=== PATIENT | female | born 1995 | race Two or more races ===

== ENCOUNTER 2018-11-17 02:20 | Emergency (ER) | payer SELFPAY ==
[~2018-11-17] VITALS: Ht 160 cm; Wt 59.0 kg
[2018-11-17 03:04] VITALS: BP 138/97
== END 2018-11-17 06:01 | disposition home or self-care (01) ==
LOC: ER 02:24
DX: N76.0 Acute vaginitis (principal)

== ENCOUNTER 2019-03-29 22:20 | Emergency (ER) | payer MEDICAID, OTHER ==
[~2019-03-29] VITALS: Ht 160 cm; Wt 61.2 kg
[2019-03-29 22:49] VITALS: BP 125/83
== END 2019-03-30 00:07 | disposition left against medical advice (07) ==
LOC: ER 22:22
DX: R21 Rash and other nonspecific skin eruption (principal); Z53.21 Procedure and treatment not carried out due to patient leaving prior to being seen by health care provider

== ENCOUNTER 2020-02-23 01:12 | Emergency (ER) | payer MEDICAID ==
[~2020-02-23] VITALS: Ht 160 cm; Wt 59.0 kg
[2020-02-23] MEDS ORDERED: SODIUM CHLORIDE 0.9% 1,000 ML IV ONE (01:45)
[2020-02-23] MEDS ORDERED: PROMETHAZINE HCL 25 MG/ML 1ML IV ONE (01:45)
[2020-02-23 01:50] VITALS: BP 133/83
[2020-02-23 02:12] LABS: Basophils # (auto) 0 10 ^3/uL (0-0.2); Basophils % (auto) 0.4 % (0.0-2.0); Eosinophils # (auto) 0.1 10 ^3/uL (0-0.8); Eosinophils % (auto) 0.7 % (0.0-7.0); Hematocrit 35.9 % (36.0-46.0); Hemoglobin 12.3 g/dL (12.2-16.2); Lymphocytes # (auto) 1.5 10 ^3/uL (0.4-5.4); Lymphocytes % (auto) 12.6 % (10.0-50.0); Mean Corpuscular Hemoglobin 31.9 pg (28.0-32.0); Mean Corpuscular Hgb Conc. 34.2 g/dL (32.0-36.0); Mean Corpuscular Volume 93.3 fL (80.0-100.0); Monocytes # (auto) 0.8 10 ^3/uL (0-1.3); Monocytes % (auto) 6.7 % (0.0-12.0); Neutrophils # (auto) 9.2 10 ^3/uL (1.6-8.6); Neutrophils % (auto) 79.6 % (37.0-80.0); Platelet Count (auto) 262 10^3/uL (140-450); Red Blood Cells 3.85 10^6/uL (4.0-5.20); Red Cell Distribution Width 13.1 % (11.8-14.3); White Blood Cell 11.6 10^3/uL (4.4-10.8)
[2020-02-23 02:22] LABS: Urine Bacteria NONE SEEN /hpf (None Seen); Urine Blood Negative /uL (Negative); Urine Mucus FEW (None Seen); Urine Specific Gravity 1.015 (1.001-1.035); Urine WBC <1 /hpf (0 - 5)
[2020-02-23 02:23] LABS: Albumin 3.1 g/dL (3.4-5.0); Amylase 66 U/L (25-115); Anion Gap 8 (5-15); Calcium 8.4 mg/dL (8.5-10.1); Carbon Dioxide 21 mmol/L (21-32); Chloride 105 mmol/L (98-107); Glucose 79 mg/dL (74-106); Lipase 119 U/L (73-393); Potassium 3.8 mmol/L (3.5-5.1); Sodium 134 mmol/L (136-145)
[2020-02-23 02:27] LABS: Alanine Aminotransferase 26 U/L (13-56); Alkaline Phosphatase 58 U/L (45-117); Aspartate Aminotransferase 17 U/L (15-37); Bilirubin, Total 0.5 mg/dL (0.2-1.0); Blood Urea Nitrogen 5 mg/dL (7-18); GFR African American 193 mL/min; GFR Non-African American 160 mL/min; INR 0.97 (0.9-1.15); Partial Thromboplastin Time 26.5 sec (23.64-32.05); Total Protein 6.4 g/dL (6.4-8.2)
[2020-02-23] MEDS ORDERED: KETOROLAC TROMETH 15 mg/ml 1ML VL IV ONE (02:30)
[2020-02-23] MEDS ORDERED: MORPHINE SULFATE 4 MG/ML SYR/VIAL IV ONE (02:30)
[2020-02-23] MEDS ORDERED: ONDANSETRON HCL 4 MG/2 ML VIAL IV ONE (02:30)
== END 2020-02-23 03:25 | disposition home or self-care (01) ==
LOC: ER 01:12
DX: O26.892 Other specified pregnancy related conditions, second trimester (principal); Z33.2 Encounter for elective termination of pregnancy; Z3A.18 18 weeks gestation of pregnancy
CPT/HCPCS: 36415; 80053; 81001; 82150; 83605; 83690; 83735; 84484; 84702; 85025; 85610; 85730; 99283; J7030

== ENCOUNTER 2021-11-21 11:15 | Emergency (ER) | payer MEDICAID | END 2021-11-21 12:23 | disposition left against medical advice (07) | LOC: EDBD 11:15 → ER 11:15 | DX: F10.129 Alcohol abuse with intoxication, unspecified (principal); Y90.9 Presence of alcohol in blood, level not specified ==

== ENCOUNTER 2022-04-16 22:31 | Emergency (ER) | payer MEDICAID ==
[~2022-04-16] VITALS: Ht 160 cm; Wt 59.0 kg
[2022-04-17 08:35] VITALS: BP 147/99
[2022-04-17] MEDS ORDERED: CIPR1SUS8 OT (10:53)
[2022-04-17] MEDS ORDERED: AMOX-277 PO (10:53)
[2022-04-17] MEDS ORDERED: ACET-1158 PO (10:53)
== END 2022-04-17 10:54 | disposition home or self-care (01) ==
LOC: ER 22:31
DX: H60.91 Unspecified otitis externa, right ear (principal); Z79.2 Long term (current) use of antibiotics; Z79.899 Other long term (current) drug therapy

== ENCOUNTER → 2023-09-11 | Emergency (ER) | payer MEDICAID ==
[~2023-09-11] VITALS: Ht 160 cm; Wt 60.0 kg
[~2023-09-11] MED LIST: ACET500T58 PO; AMOX875T4 PO; CIPR1SUS8 OT
[2023-09-11 19:37] VITALS: BP 130/84; PULSE 100; RESP 18; O2SAT 98
== END | disposition left against medical advice (07) ==
LOC: EDUNIT# 19:04 → ER 19:04 → EDBD 19:04
DX: R51.9 Headache, unspecified (principal); Z53.21 Procedure and treatment not carried out due to patient leaving prior to being seen by health care provider